=== PATIENT | male | born 1970 | race Two or more races ===

== ENCOUNTER 2018-11-12 15:30 | Inpatient (IN) | payer OTHER ==
[~2018-11-12] VITALS: Ht 167.6 cm; Wt 84.4 kg
== END 2018-11-21 18:54 | disposition home or self-care (01) | DRG 330 ==
LOC: SURH 11-18 05:46 → O/R 11-18 05:46 → SURH 11-18 07:00
PROVIDERS: ADMIT Colon & Rectal Surgery
PROC: 0DJD8ZZ Inspection of Lower Intestinal Tract, Via Natural or Artificial Opening Endoscopic (ICD-10-PCS; 2018-11-18)
PROC: 0DTN4ZZ Resection of Sigmoid Colon, Percutaneous Endoscopic Approach (ICD-10-PCS; principal; 2018-11-18 07:00)
DX: K57.20 Diverticulitis of large intestine with perforation and abscess without bleeding (principal); K92.1 Melena

== ENCOUNTER 2020-03-25 11:40 | Day surgery (SDC) | payer OTHER | END 2020-03-25 17:10 | disposition home or self-care (01) | LOC: AMB-ENDOS 11:40 → ADM 13:45 → AMB-ENDOS 13:45 | PROVIDERS: ATTEND Colon & Rectal Surgery | DX: K57.32 Diverticulitis of large intestine without perforation or abscess without bleeding (principal); K64.1 Second degree hemorrhoids; Z20.828 Contact with and (suspected) exposure to other viral communicable diseases ==